=== PATIENT | female | born 1955 | race Asian ===

== ENCOUNTER 2018-07-01 19:18 | Emergency (ER) | payer OTHER ==
[~2018-07-01] VITALS: Ht 154.9 cm; Wt 66.0 kg
[2018-07-01 19:31] VITALS: Ht 154.9 cm; Wt 66.0 kg
[2018-07-01] MEDS ORDERED: METF-849 PO (21:41)
[2018-07-01] MEDS ORDERED: ATOR20TA38 PO (21:42)
[2018-07-01] MEDS ORDERED: LOSA50TA14 PO ×2 (21:42→23:04)
[2018-07-01] MEDS ORDERED: LEVO100T8 PO ×2 (21:42→23:04)
--- NOTE | 2018-07-01 22:57 | ERD ---
ER Documentation Chief Complaint Chief Complaint PALPITATIONS WITH CP X 2 DAYS; RECENT TRAVEL; HTN, DM, HYPOTHYROID HPI 63-year-old female with a history of diabetes, hypothyroidism and hypertension presenting with complaints of palpitations that started earlier today. She recently arrived from [place] today and her cousin brought her to the ER for evaluation. She had only a short period of central chest pain with no associated diaphoresis, nausea, or vomiting. She had some shortness of breath with her palpitations that has since improved. She denies any current palpitations. No recent illnesses. No fevers or chills. No vomiting or diarrhea. ROS All systems reviewed and are negative except as per history of present illness. Medications Home Meds Active Scripts Levothyroxine Sodium* (Levothyroxine Sodium*) 100 Mcg Tablet, 100 MCG PO BEFORE BREAKFAST, #30 TAB Prov:PERCY PLATA MD 07/01/18 Losartan Potassium* (Losartan Potassium*) 50 Mg Tablet, 50 MG PO DAILY, #30 TAB Prov:PERCY PLATA MD 07/01/18 Reported Medications Levothyroxine Sodium* (Levothyroxine Sodium*) 100 Mcg Tablet, 100 MCG PO BEFORE BREAKFAST, #30 TAB 07/01/18 Atorvastatin Calcium* (Atorvastatin Calcium*) 20 Mg Tablet, 20 MG PO QHS, #30 TAB 07/01/18 Losartan Potassium* (Losartan Potassium*) 50 Mg Tablet, 50 MG PO DAILY, TAB 07/01/18 Metformin* (Glucophage*) 500 Mg Tab, 500 MG PO BID WITH MEALS, #60 TAB 07/01/18 Allergies Allergies: Coded Allergies: No Known Allergy (Unverified , 07/01/18) PMhx/Soc History of Surgery: Yes (CS) Anesthesia Reaction: No Hx Neurological Disorder: No Hx Respiratory Disorders: No Hx Cardiac Disorders: No (hypertension) Hx Psychiatric Problems: No Hx Miscellaneous Medical Probl: Yes (diabetes) Hx Alcohol Use: No Hx Substance Use: No Hx Tobacco Use: No Smoking Status: Never smoker FmHx Family History: coronary disease Physical Exam Vitals Vital Signs Date Temp Pulse Resp B/P (MAP) Pulse Ox O2 O2 Flow FiO2 Time Delivery Rate 07/01/18 97.7 83 22 129/69 98 Room Air 23:17 (89) 07/01/18 86 19 135/68 97 Room Air 22:23 (90) 07/01/18 97.2 93 18 165/73 97 19:31 (103) Physical Exam Const: No acute distress, well-appearing, nontoxic Head: Atraumatic Eyes: Normal Conjunctiva ENT: Normal External Ears, Nose and Mouth. Neck: Full range of motion. No meningismus. No thyromegaly Resp: Clear to auscultation bilaterally Cardio: Regular rate and rhythm, no murmurs. 2+ distal pulses in all 4 extremities Abd: Soft, non tender, non distended. Normal bowel sounds Skin: No petechiae or rashes Back: No midline or flank tenderness Ext: No cyanosis, or edema Neur: Awake and alert, no facial asymmetry, normal speech, moving all ext remities Psych: Normal Mood and Affect Result Diagram: 07/01/18213307/01/182133 Results 24 hrs Laboratory Tests Test 07/01/18 21:34 White Blood Count 5.9 10^3/ul Red Blood Count 4.52 10^6/ul Hemoglobin 14.0 g/dl Hematocrit 43.0 % Mean Corpuscular Volume 95.1 fl Mean Corpuscular Hemoglobin 31.0 pg Mean Corpuscular Hemoglobin Concent 32.6 g/dl Red Cell Distribution Width 12.5 % Platelet Count 287 10^3/UL Mean Platelet Volume 9.9 fl Immature Granulocytes % 0.200 % Neutrophils % 59.7 % Lymphocytes % 25.0 % Monocytes % 7.3 % Eosinophils % 6.1 % Basophils % 1.7 % Nucleated Red Blood Cells % 0.0 /100WBC Immature Granulocytes # 0.010 10^3/ul Neutrophils # 3.5 10^3/ul Lymphocytes # 1.5 10^3/ul Monocytes # 0.4 10^3/ul Eosinophils # 0.4 10^3/ul Basophils # 0.1 10^3/ul Nucleated Red Blood Cells # 0.0 10^3/ul Sodium Level 141 mmol/L Potassium Level 4.3 mmol/L Chloride Level 103 mmol/L Carbon Dioxide Level 29 mmol/L Anion Gap 9 Blood Urea Nitrogen 20 mg/dl Creatinine 0.63 mg/dl Est Glomerular Filtrat Rate mL/min > 60 mL/min Glucose Level 159 mg/dl Calcium Level 9.6 mg/dl Troponin I < 0.012 ng/ml Procedures/MDM EMERGENT LABS AND DIAGNOSTIC STUDIES: Lab Results above were reviewed and interpreted by me. CBC: no anemia or evidence of infection BMP: No evidence of electrolyte abnormality, renal failure, hypoglycemia Troponin within normal limits, not indicative of cardiac ischemia 12-lead EKG was interpreted by Sher Plata MD: Normal Sinus Rhythm Normal axis Normal intervals No acute ST or T wave changes suggestive of acute ischemia or STEMI. Radiology Results as interpreted by Radiology below were reviewed by Fabian Plata MD: Chest x-ray shows no acute abnormalities Initial Nursing notes reviewed. Previous Medical Records requested via the Electronic Health Record. EMERGENCY DEPARTMENT COURSE / MEDICAL DECISION MAKING: Patient presents with palpitations and an episode of chest pain earlier today. Her EKG is normal without any evidence of arrhythmia or ischemia. Troponin was within normal limits. Labs did not show any significant abnormalities. Patient has been stable while in the ER on the monitor worker as well as asymptomatic. I feel she is stable for discharge with continued outpatient follow-up. I did give her a refill for her losartan and levothyroxine. Strict return precautions were discussed. Patient's blood pressure was elevated (>120/80) but appears stable without evidence of hypertensive emergency or urgency. The patient was counseled about the risks of hypertension and urged to pursue outpatient monitoring and therapy within a week with their primary care physician. Departure Diagnosis: Primary Impression: Intermittent palpitations Additional Impression: Chest pain Chest pain type: unspecified Qualified Codes: R07.9 - Chest pain, unspecified Condition: Stable Patient Instructions: Chest Pain, Uncertain Cause, Palpitations Additional Instructions: Follow-up with your primary care doctor on Wednesday. If any of your symptoms worsen prior to that, or your heart rate increases again, return to the ER for reevaluation. PERCY PLATA MD Jul 01, 2018:57
[2018-07-01 23:17] VITALS: BP 129/69; PULSE 83; RESP 22
== END 2018-07-01 23:18 | disposition home or self-care (01) ==
LOC: E/R 19:18
DX: R00.2 Palpitations (principal); R07.9 Chest pain, unspecified; E11.9 Type 2 diabetes mellitus without complications; I10 Essential (primary) hypertension; E03.9 Hypothyroidism, unspecified; Z79.84 Long term (current) use of oral hypoglycemic drugs
CPT/HCPCS: 36415; 71045; 80048; 84484; 85025; 93005